=== PATIENT | male | born 1965 | race Caucasian/White ===

== ENCOUNTER 2025-05-15 13:38 | Observation (INO) | payer OTHER ==
[~2025-05-15] VITALS: Ht 167.6 cm; Wt 69.9 kg
[2025-05-15 14:12] LABS: IMMATURE GRANULOCYTE ABSOLUTE 0.04 K/uL (0-1); NUCLEATED RED BLOOD CELLS 0.0 % (0.0-0.19); PLATELET COUNT (AUTO) 291 K/uL (130-400); RED BLOOD CELL COUNT(AUTO) 4.35 MIL/uL (4.50-6.20); RED CELL DISTRIBUTION WIDTH 13.9 % (11.0-15.5); WHITE BLOOD COUNT (AUTO) 8.2 K/uL (4.8-10.8)
--- NOTE | 2025-05-15 14:18 | EKG ---
[facility] Test Date: 2025-05-15 Test Time: 14:15:36 Pat Name: BESSIE MARIE Department: ED Room: 406 Gender: M Beater Out Leveling Machine: [id number] : 1965 Requested By: YUDY HILL Order Number: [id number] Reading MD: Katherin Tovar Measurements Intervals Crane Rate: 63 P: 48 NC: 147 QRS: 61 QRSD: 91 T: 60 QT: 407 QTc: 415 Interpretive Statements Sinus rhythm No previous ECG available for comparison Electronically Signed On 05-17-2025 14:14:18 CDT by Katherin Tovar Please click the below link to view image of tracing.
[2025-05-15 14:31] LABS: CREATININE 0.6 mg/dL (0.5-1.3); GLOMERULAR FILTR. RATE CALC 111.0 mL/min (>90); GLUCOSE,RANDOM 117.0 mg/dL (70-105); SODIUM SERUM 133.0 mmol/L (136-145); UREA NITROGEN, BLOOD 11.0 mg/dL (7-18)
[2025-05-15 14:37] LABS: ASPARTATE AMINOTRANSFERASE 21.0 U/L (10-37); TOTAL PROTEIN, SERUM 6.8 g/dL (6.0-8.3)
--- NOTE | 2025-05-15 15:39 | HMCIMG ---
Indication: Seizure. Technique: Noncontrast axial CT of the head is obtained with coronal and sagittal reconstructions. Comparison: No pertinent prior similar studies have been submitted for comparison. Findings: Right frontotemporal craniotomy is noted. Encephalomalacia is noted in the right temporal lobe. No acute intracranial hemorrhage is noted. The ventricles are normal in size and configuration. Negron-white matter differentiation is maintained. No edema, mass effect or midline shift is seen. Midline structures and the posterior cranial fossa structures are unremarkable. No extra-axial fluid collection is noted. The orbits are unremarkable. Mild mucosal thickening is noted in the right maxillary sinus. The rest of the paranasal sinuses and the mastoid air cells are clear. 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 No acute intracranial abnormality. /[place]
--- NOTE | 2025-05-15 16:06 | ERN ---
ED Note History of Present Illness Stated Complaint: SEIZURE POA, SOB, NAUSEA, COLD SWEATS Chief Complaint: Seizure Time Seen by MD: 13:46 Dictation: 59-year-old male presenting to the ER for episode of seizure few hours ago while on a zoom call did not bump his head patient reported he had cold sweats and shortness a breath shortly after but all symptoms have resolved and he takes his medicines as prescribed history of traumatic brain injury years ago and then splint well controlled Allergies: Coded Allergies: No Known Allergies (Unverified Allergy, Unknown, 05/15/25) Past Medical History Past Medical History: Hypertension, Seizure Additional Past Medical Hx: TBI Surgical History: Tonsillectomy Surgical History Other: CRANIOTOMY Review of System Dictation Constitutional: Negative for fever,chills, and weight loss Eyes: Negative for injury, pain,redness, and discharge ENT: Negative for injury,pain or swelling Cardiovascular: Negative for chest pain, palpitations, and edema Respiratory: Per HPI Abdomen/GI: Negative for abdominal pain, nausea, vomiting, diarrhea, and constipation Back: Negative for injury and pain : Negative for injury, bleeding and discharge MS/Extremity: Negative for injury and deformity Skin: Negative for rash, and discoloration Neuro: Per HPI Initial Vital Sign VS Vital Signs Date Time Temp Pulse Resp B/P (MAP) Pulse Ox O2 Delivery O2 Flow Rate FiO2 05/15/25 13:41 98.1 60 16 145/83 100 Room Air* 0 21 Physical Exam Dictation General: awake, alert, NAD Head/Face: Normocephalic, atraumatic Eyes: PERRL, EOMI, vision at baseline ENT: oral cavity clear, TMs clear, no signs of infection Neck: Trachea midline, supple, no nuchal rigidity Cardiovascular: RRR, normal S1/S2, No MRGs, no JVD Respiratory: CTAB, no respiratory distress, No rales or wheezes Abdomen: Soft, non-tender, non-distended, normal bowel sounds, no guarding or rebound. Skin: Warm, dry, normal turgor, no rash MS/Extremity: Pulses equal, no cyanosis, neurovascular intact, FROM Neuro: COAx4, GCS 15, strength 5/5, CN 2-12 intact, normal cerebellar exam, normal gait, Psych: Normal behavior, mood, and affect normal Results (Laboratory/Radiology) Laboratory/Radiology Laboratory Tests Test 05/15/25 14:00 White Blood Count 8.2 K/uL (4.8-10.8) Red Blood Count 4.35 MIL/uL (4.50-6.20) L Hemoglobin 13.1 g/dL (14.0-18.0) L Hematocrit 39.9 % (42-54) L Mean Corpuscular Volume 91.7 fL (79-99) Mean Corpuscular Hemoglobin 30.1 pg (27.0-33.0) Mean Corpuscular Hemoglobin Concent 32.8 g/dL (32.0-36.0) Red Cell Distribution Width 13.9 % (11.0-15.5) Platelet Count 291 K/uL (130-400) Mean Platelet Volume 8.1 fL (7.5-10.5) Immature Granulocyte % (Auto) 0.5 % (0-1) Neutrophils (%) (Auto) 84.3 % (40.0-77.0) H Lymphocytes (%) (Auto) 8.2 % (21.0-51.0) L Monocytes (%) (Auto) 6.7 % (3.0-13.0) Eosinophils (%) (Auto) 0.1 % (0.0-8.0) Basophils (%) (Auto) 0.2 % (0.0-5.0) Neutrophils # (Auto) 6.9 K/uL (1.8-7.7) Lymphocytes # (Auto) 0.7 K/uL (1.0-4.8) L Monocytes # (Auto) 0.6 K/uL (0.1-1.0) Eosinophils # (Auto) 0.01 K/uL (0.00-0.70) Basophils # (Auto) 0.02 K/uL (0.00-0.20) Absolute Immature Granulocyte (auto 0.04 K/uL (0-1) Nucleated Red Blood Cells 0.0 % (0.0-0.19) White Cell Morphology Comment See comments Sodium Level 133 mmol/L (136-145) L Potassium Level 3.8 mmol/L (3.5-5.1) Chloride Level 95 mmol/L (101-111) L Carbon Dioxide Level 28 mmol/L (21-32) Blood Urea Nitrogen 11 mg/dL (7-18) Creatinine 0.6 mg/dL (0.5-1.3) Glomerular Filtration Rate Calc 111 mL/min (>90) Random Glucose 117 mg/dL (70-105) H Total Calcium 8.9 mg/dL (8.5-10.1) Total Bilirubin 0.6 mg/dL (0.2-1.0) Direct Bilirubin 0.1 mg/dL (0.0-0.3) Aspartate Amino Transf (AST/SGOT) 21 U/L (10-37) Alanine Aminotransferase (ALT/SGPT) 26 U/L (12-78) Alkaline Phosphatase 55 U/L (50-136) Troponin I High Sensitivity 4 ng/L (4-75) Total Protein 6.8 g/dL (6.0-8.3) Albumin 4.0 g/dL (3.5-5.0) Labs Reviewed?: Yes EKG Comment: Heart rate 68 normal sinus rhythm normal intervals no STEMI or STEMI equivalent ED Course ED Course Orders Procedure Category Date Status Time 12 Lead Ekg Tracing- EKG 05/15/25 Complete Technical 13:53 Basic Metabolic Panel LAB 05/15/25 Complete 13:53 Cbc With Differential LAB 05/15/25 Complete 13:53 Hepatic Function Panel LAB 05/15/25 Complete 13:53 Troponin I High LAB 05/15/25 Complete Sensitivity 13:53 Ct Head/Brain W/O CT 05/15/25 Resulted Contrast 13:53 Levetiracetam 500 PHA 05/15/25 Complete Mg/5 M[address] Sd V (Keppra 5 14:00 Current Medications Medications (Trade) Dose Ordered Sig/Evon Route PRN Reason Start Time Stop Time Status Last Admin Dose Admin Levetiracetam (kepPRA 500 MG/5 ML SD VIAL) 1,000 mg ONCE ONCE IV 05/15/25 14:00 05/15/25 14:01 DC 05/15/25 14:08 Vital Signs Date Time Temp Pulse Resp B/P (MAP) Pulse Ox O2 Delivery O2 Flow Rate FiO2 05/15/25 15:44 97.5 61 20 132/85 98 Room Air* 0 21 05/15/25 14:30 96.4 65 16 131/93 99 Room Air* 0 21 05/15/25 13:41 98.1 60 16 145/83 100 Room Air 0 05/15/25 13:41 98.1 60 16 145/83 100 Room Air* 0 21 Medical Decision Making MDM MDM: Differential diagnosis: Rationale: Tests considered and ordered secondary to shared decision making include: Previous outside records reviewed: Old ER visits. Risk of complication and/or morbidity or mortality of patient management: None Medications-Per medication reconciliation Need for hospitalization: Patient does not meet criteria for hospitalization. Need for emergency major/minor surgery: No There are no social concerns with this patient. Prescription drug management Prescriptions will include symptomatic care Patient's prior external medical records from other ER visits were reviewed by me as indicated. Prior testing and results from previous visits were reviewed. Prior tests were taken into account with medical decision making and resource utilization, independent historian/historians were used to obtain complete medical history. I independently interpreted the test that were performed, results were reviewed by me and considered findings on radiology if ordered. Medical management and examination interpretation discussions were had by me with other qualified healthcare professionals as indicated for the patient's care. \ Brief episode of seizure everything stable negative blood work and CT of the head patient at baseline stable for discharge. DX & DISP Disposition: Discharge Departure Impression: Primary Impression: Seizure Condition: Stable Referrals: SELF,REFERRAL (PCP) YUDY HILL MD May 15, 2025 16:06
[2025-05-15] MEDS ORDERED: PoTASSium chloRIDE 20MEQ ER 20 MEQ ERTAB PO PRN (16:30)
[2025-05-15] MEDS ORDERED: LACTULOSE 20 GM/30 ML UDCUP PO PRN (16:30)
[2025-05-15] MEDS ORDERED: PoTASSium chl 10% ELIXIR 20MEQ 20 MEQ/15 ML UDCUP PO PRN (16:30)
[2025-05-15] MEDS ORDERED: MAGNESIUM 2GM PREMIX 50ML 50 ML IV PRN (16:30)
--- NOTE | 2025-05-15 16:40 | NUR ---
SEIZUER ACTIVITY LASTED 5-10 SECONDS.VALIUM 5 MG ADMINISTERED IVP.
--- NOTE | 2025-05-15 17:13 | HP ---
[facility] PHYS[facility] Date of Service: May 15, 2025 Time of Service: 16:37 HISTORY OF PRESENT ILLNESS: [ ] admission date: 05/15/25 PCP self referral This is a 59-year-old male that presents in ER with chief complaints of having a episode of seizure activity. Onset this morning patient was in [employer] Tele conference when his encounters witnessed him having a seizure duration was about 30 seconds. Patient was given Valium the patient is in and out: will obtain data from significant other. Reports last seizure was 9 years ago: has a history of brain injury post craniotomy, the patient take antiepileptic medication: Lamotrigine 200 mg po bid. compliance with treatment. 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 Patient was given Keppra 1000 mg IV. We will bring in tele neuro patient had another episode in ED seizures that lasted about 30 seconds. The patient denies chest pain or shortness for breath. REVIEW OF SYSTEMS CONSTITUTIONAL: Denies fevers, chills, or night sweats. No unintentional weight loss reported. NEUROLOGICAL: Denies headache, amaurosis fugax, motor weakness, sensory deficit, vertigo/spinning sensation, gait abnormalities, or tremors. ENT: No hearing loss, otalgia, otorrhea, rhinitis, rhinorrhea, hoarseness, or sore throat. CARDIOVASCULAR: Denies any exertional angina, dyspnea on exertion, orthopnea, paroxysmal nocturnal dyspnea, palpitations, life-threatening arrhythmias, c laudication. PULMONARY: Denies any shortness of breath, cough, phlegm/sputum, hemoptysis, pleuritic chest pain. SLEEP: Denies morning headaches, daytime somnolence or napping. Denies difficulty falling asleep, staying asleep, waking from sleep. Denies knowledge of snoring. GASTROINTESTINAL: Denies any type of dysphagia to either liquids or solids. Denies nausea, vomiting, pyrosis, early satiety, abdominal pain, diarrhea, cons tipation, or changes in stool consistency or caliber. Denies coffee-ground emesis, hematemesis, hematochezia, or melanotic stools. GENITOURINARY: Denies frequency, urgency, nocturia, hematuria or incontinence (Storage/Irritative symptoms.) Low urinary stream, straining to void, urinary intermittency or hesitancy, splitting of the voiding stream, terminal dribbling. ENDOCRINOLOGIC: Denies polyuria, polydipsia, polyphagia or heat/cold intolerances. HEMATOLOGIC: Denies thrombophilia/previous clots, or coagulopathy/bleeding disorders. ONCOLOGIC: Denies personal history of malignancy. DERMATOLOGIC: Denies rashes or pruritus. PSYCHIATRIC: Denies any suicidal or homicidal ideation. Denies hallucinations. PAST MEDICAL HISTORY: [ ] Seizures, hypertension PAST SURGICAL HISTORY: [ ] Craniotomy PAST SOCIAL HISTORY: [ ] Drinks alcohol wine 2-4 glasses a day Patient vapes one cartridge when last some one-week Lives with spouse FAMILY HISTORY: [ ] Noncontributory Coded Allergies: No Known Allergies (Unverified Allergy, Unknown, 05/15/25) PHYSICAL EXAM GENERAL APPEARANCE: The patient is awake, alert, and oriented, in no acute cardiopulmonary distress. NEUROLOGICAL: Cranial nerves II-XII grossly intact. Motor is 5/5 in bilateral upper and lower extremities proximal to distal. No sensory deficits. HEENT: Face is symmetric. Pupils are equal and reactive. Extraocular movements are intact. NECK: Supple. No JVD. No thyromegaly. No submental, submandibular, pre- /postauricular, occipital or supraclavicular lymphadenopathy. CHEST: Normal chest expansion. No Telemetry. LUNGS: Absence of any rales, rhonchi or any wheezing. CARDIOVASCULAR: Regular. S1 and S2 normal. No appreciable rubs, murmurs or gallops. ABDOMEN: Soft, nontender, and nondistended. There is no rebound, voluntary guarding, or rigidity. : Deferred. No Dennis. EXTREMITIES: Non-edematous and not cyanotic. No clubbing. Good capillary refill. SKIN: No skin breakdown. Vital Sign (Last 24 Hours) 05/15/25 15:44 Temp 97.5 Pulse 61 Resp 20 B/P (MAP) 132/85 Pulse Ox 98 O2 Delivery Room Air* O2 Flow Rate 0 FiO2 21 LABS: Laboratory: Test 05/15/25 14:00 Range/Units White Blood Count 8.2 4.8-10.8 K/uL Red Blood Count 4.35 L 4.50-6.20 MIL/uL Hemoglobin 13.1 L 14.0-18.0 g/dL Hematocrit 39.9 L 42-54 % Mean Corpuscular Volume 91.7 79-99 fL Mean Corpuscular Hemoglobin 30.1 27.0-33.0 pg Mean Corpuscular Hemoglobin Concent 32.8 32.0-36.0 g/dL Red Cell Distribution Width 13.9 11.0-15.5 % Platelet Count 291 130-400 K/uL Mean Platelet Volume 8.1 7.5-10.5 fL Immature Granulocyte % (Auto) 0.5 0-1 % Neutrophils (%) (Auto) 84.3 H 40.0-77.0 % Lymphocytes (%) (Auto) 8.2 L 21.0-51.0 % Monocytes (%) (Auto) 6.7 3.0-13.0 % Eosinophils (%) (Auto) 0.1 0.0-8.0 % Basophils (%) (Auto) 0.2 0.0-5.0 % Neutrophils # (Auto) 6.9 1.8-7.7 K/uL Lymphocytes # (Auto) 0.7 L 1.0-4.8 K/uL Monocytes # (Auto) 0.6 0.1-1.0 K/uL Eosinophils # (Auto) 0.01 0.00-0.70 K/uL Basophils # (Auto) 0.02 0.00-0.20 K/uL Absolute Immature Granulocyte (auto 0.04 0-1 K/uL Nucleated Red Blood Cells 0.0 0.0-0.19 % White Cell Morphology Comment See comments Sodium Level 133 L 136-145 mmol/L Potassium Level 3.8 3.5-5.1 mmol/L Chloride Level 95 L 101-111 mmol/L Carbon Dioxide Level 28 21-32 mmol/L Blood Urea Nitrogen 11 7-18 mg/dL Creatinine 0.6 0.5-1.3 mg/dL Glomerular Filtration Rate Calc 111 >90 mL/min Random Glucose 117 H 70-105 mg/dL Total Calcium 8.9 8.5-10.1 mg/dL Total Bilirubin 0.6 0.2-1.0 mg/dL Direct Bilirubin 0.1 0.0-0.3 mg/dL Aspartate Amino Transf (AST/SGOT) 21 10-37 U/L Alanine Aminotransferase (ALT/SGPT) 26 12-78 U/L Alkaline Phosphatase 55 50-136 U/L Troponin I High Sensitivity 4 4-75 ng/L Total Protein 6.8 6.0-8.3 g/dL Albumin 4.0 3.5-5.0 g/dL Current Medications Medications (Trade) Dose Ordered Sig/Evon Route PRN Reason Start Time Stop Time Status Last Admin Dose Admin Acetaminophen (TYLenol 325MG TAB) 650 mg Q4H PRN PO TEMPERATURE GREATER THAN 101.5 05/15/25 16:30 06/14/25 16:29 UNV Diazepam (VALium 5 MG/ML 2 ML SYG) 5 mg ONCE STAT IVP 05/15/25 16:13 05/15/25 16:14 DC 05/15/25 16:19 5 MG Famotidine (Pepcid 20mg Tab) 20 mg DAILY PO 05/16/25 09:00 06/15/25 08:59 UNV Hydralazine HCl (APRESOLine 20MG INJ) 5 mg Q4H PRN IV ADMINISTER FOR SBP > 160 05/15/25 16:30 06/14/25 16:29 UNV Lactulose (Constulose 20gm/ 30ml Udcup) 20 gm BID PRN PO CONSTIPATION 05/15/25 16:30 06/14/25 16:29 UNV Lorazepam (AtiVAN) 1 mg Q4H PRN IVP SEIZURES 05/15/25 16:30 05/22/25 16:29 UNV Magnesium Sulfate 50 ml @ 0 mls/hr PROTOCOL PRN IV low mag level 05/15/25 16:30 06/14/25 16:29 UNV Potassium Chloride 100 ml @ 100 mls/hr AD PRN IV POTASSIUM PROTOCOL 05/15/25 16:30 06/14/25 16:29 UNV Potassium Chloride (K-Dur/Klor-Con 20meq) 20 meq AD PRN PO POTASSIUM PROTOCOL 05/15/25 16:30 06/14/25 16:29 UNV Potassium Chloride (KCl 10% Elixir 20meq/15ml) 20 meq AD PRN PO POTASSIUM PROTOCOL 05/15/25 16:30 06/14/25 16:29 UNV DIAGNOSTICS / RADIOLOGY: [ ] ASSESSMENT: Seizures Multiple POA Epilepsy disorder POA Chronic problems: Essential Hypertension history Brain injury with CRANIOTOMY Allergies: No Known Allergies PLAN: [ ] Admit: Medical-surgical condition: Guarded Status: Full code IVF: [facility] tele neuro Seizure precautions Ativan1 mg IV as needed for seizure activity We will resume lamotrigine we will defer to tele neuro MD Labs cbc, cmp, mag+ Replace electrolytes as needed as per protocol to keep potassium above 4.0 magnesium 2.0. Home medications pending to be reviewed by RN nurse. PRN: MEDICATIONS Tylenol 650 mg po every 4 hrs for fever zofran 4 mg IV every 6 hrs for n/v Hydralazine 5 mg IV every 4 hrs systolic pressure > 160 bowel regiment: lactulose 20 gm PO BID PRN constipation Supportive measures: DVT ppx, GI ppx all questions answered time spent: > 35 min Supervising MD: c/d This document was generated in part using voice recognition software, occasional wrong word or sound alike substitutions may have occurred due to the inherent limitations of voice recognition software. Read the chart carefully and recognize using context, where the substitutions have occurred. Although every effort was made to edit the content, energy analyst and typing errors may occur ADVANCED CARE PLANNING 1. Which of the following were discussed? Hospice Care - Yes / No Therapeutic options - Yes / No Advance Directives - Yes / No Other discussions - 2. Discussed with who? 3. Voluntary nature of this service was explained to the patient? Yes / No 4. Amount of time spent - 5. Reviewed by Physician? (if this service was performed by NPP) Yes / No ATTESTATION BY PHYSICIAN I have seen and examined the patient. I reviewed the documentation, medical decision making, and treatment plan as noted by the mid-level provider above. I agree with the findings and plan of care. Bhumika Mabry MD, ELIZABETH NP May 15, 2025 17:13
--- NOTE | 2025-05-15 18:36 | NUR ---
TELE NEURO CONSULT DONE
--- NOTE | 2025-05-15 18:39 | CONS ---
CONSULT NOTE: [facility] Note # Demographics Consult Type: General Neurology Patient Location: Emergency Room First Name: BESSIE Bustillos Last Name: FRANK Date of : 1965 Age: 59 Gender: Male Facility: [facility] Time of Initial Page (Central Time): 05/15/2025 18:14 Time of Return Call (Central Time): 05/15/2025 18:14 # HPI History: TBI 9 years ago. resulted in seizures. On lamictal 200 mg bid. no seizures for 8 years. Today morning had a seizure. Had second brief sz this afternoon in ED. no bladder or bowl incontinence. received keppra and valium in ED. pt report compliance with Lamictal. no recent infection. per pt, he has tried multiple AEDs in past. keppra caused "rage". dilantin made him "feel drunk", and aptiom causes nausea and weight loss. Never tried vimpat. # Exam Time of Exam (Central Time): 05/15/2025 18:30 Mental Status: - awake - follows commands - alert and oriented x 3 Language: - no aphasia - no dysarthria Cranial Nerves: - extra ocular movements intact - normal visual smith - no facial droop Motor: - no drift Cerebellar: - normal cerebellar exam # PMH-FH-SH Past Medical History: - seizure - hypertension TBI # Data Glucose: within normal limits Other Labs: sodium [address] personally read by me (Central Time): 05/15/2025 18:[address]: - no bleed - per radiologist read right temporal encephalomalacia and postsurgical changes # Assessment Impression: - Seizure # Plan Labs: - B12 - TSH - urine drug screen - ua metabolic infectious w/u Other: - If patient has any neurological deterioration please call me back immediately - I have discussed my recommendations with the referring provider - seizure precautions - neurology referral as outpatient Additional Recommendations: continue lamictal 200 mg bid add vimpat 100 mg PO or IV bid. pt has reportedly side effects with keppra, aptiom and dilantin in the past. recommend avoiding those. no driving until cleared by local neuro. avoid meds which can lower sz threshold. prn ativan/versed/valium for breakthrough sz. if continue to have more seizures- recommend MRi brain w/wo and EEG # Logistics Attestation of consult completion: The patient is located at: [facility]. Facility staff participated in the visit. I performed this telemedicine visit from my offsite office utilizing interactive 2 way audio and visual telecommunication technology. Total time spent in telemedicine encounter: I spent 15 minutes reviewing clinical data and/or imaging, obtaining history, examining the patient, communicating with the onsite care team, and in preparation of this report. # Demographics First Name: BESSIE Bustillos Last Name: FRANK Facility: [facility] CLARE REED MD May 15, 2025 18:39
[2025-05-15] MEDS ORDERED: VALS1TAB76 PO (19:16)
[2025-05-15] MEDS ORDERED: ERGO500093 PO (19:16)
[2025-05-15] MEDS ORDERED: LAMO200T10 PO (19:16)
--- NOTE | 2025-05-15 19:16 | NUR ---
MEDICATIONS RECONCILED
[2025-05-15 19:30] VITALS: O2SAT 99
[2025-05-15 20:00] VITALS: BP 118/74; PULSE 60; RESP 20; TEMP 97.6
[2025-05-16] VITALS: BP 127/80; PULSE 60; RESP 20; TEMP 97.8
[2025-05-16 04:00] VITALS: BP 122/84; PULSE 70; RESP 20; TEMP 97.7
[2025-05-16 08:00] VITALS: O2SAT 99
[2025-05-16 08:13] VITALS: BP 108/74; PULSE 68; RESP 18; TEMP 98.1
[2025-05-16] MEDS: FAMOTIDINE 20MG TAB PO SCH (08:36)
--- NOTE | 2025-05-16 11:01 | NUR ---
INFORMED PRIMARY OFE,PRIMARY CLINICIAN DURING ROUNDS OF TELE NEURO RECOMMENDATIONS ,PER PRIMARY ALREADY READ THE RECOMMENDATIONS AND WILL DC PATIENT HOME TO FOLLOW UP WITH HIS NEUROLOGIST
[2025-05-16 11:15] VITALS: BP 118/76; PULSE 60; RESP 18; TEMP 97.7
[2025-05-16] MEDS ORDERED: LACO100T2 PO ×2 (11:47→11:51)
--- NOTE | 2025-05-16 11:48 | NUR ---
DCP: HOME Pt currently lives with his Edith [phone]. Pt does not have any DME, home health, or provider services. Pt is able to complete ADLs independently. Pt works for a [employer] company and works from home on . As per pt he travels to different metro areas in [place] . Pt sees a MARKETING FINANCE SPECIALIST on [address] does not recall the name. Pt states that he is looking for providers in the [place] area since he goes there at least once a week for work. At [place] pt will go home and sps will assist with transportation. Addendum: 05/16/25 at 1151 by ANDRE BARROS SS Amended: Links added.
--- NOTE | 2025-05-16 12:00 | DS ---
Discharge Summary Hospital Course Summary: admission date: 05/15/25 PCP self referral This is a 59-year-old male that presents in ER with chief complaints of having a episode of seizure activity. Onset this morning patient was in [facility] Tele conference when his encounters witnessed him having a seizure duration was about 30 seconds. Patient was given Valium the patient is in and out: will obtain data from significant other. Reports last seizure was 9 years ago: has a history of brain injury post craniotomy, the patient take antiepileptic medication: Lamotrigine 200 mg po bid. compliance with treatment. 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 Patient was given Keppra 1000 mg IV. We will bring in tele neuro patient had another episode in ED seizures that lasted about 30 seconds. The patient denies chest pain or shortness for breath. 05/16/25 patient was seen patient reports no events of seizures overnight. Patient was evaluated by [facility] neuro started patient on Vimpat 100 mg p.o. b.i.d.. Patient has a primary Neurology in [facility] be following him for nine years he will give him a call once he is discharged from [facility]. Patient reports no signs and symptoms of UTI. Patient reports he travels a lot and has been very busy not getting enough sleep prior to episode of seizures yesterday. Patient is fully awake alert oriented x3. all questions were addressed he will be discharged hemodynamically stable. Procedure(s): REASON: sz ORDERING PHYSICIAN: YUDY HILL MD PROCEDURE: HEAD WO - CT HEAD/BRAIN W/O CONTRAST Indication: Seizure. Technique: Noncontrast axial CT of the head is obtained with coronal and sagittal reconstructions. Comparison: No pertinent prior similar studies have been submitted for comparison. Findings: Right frontotemporal craniotomy is noted. Encephalomalacia is noted in the right temporal lobe. No acute intracranial hemorrhage is noted. The ventricles are normal in size and configuration. Negron-white matter differentiation is maintained. No edema, mass effect or midline shift is seen. Midline structures and the posterior cranial fossa structures are unremarkable. No extra-axial fluid collection is noted. The orbits are unremarkable. Mild mucosal thickening is noted in the right maxillary sinus. The rest of the paranasal sinuses and the mastoid air cells are clear. 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 No acute intracranial abnormality. /[place] Assessment/Plan: discharged dx's Seizures Multiple POA Epilepsy disorder POA Chronic problems: Essential Hypertension history Brain injury with CRANIOTOMY Allergies: No Known Allergies PLAN: \ADMISSION DATE: 05/15/25 DISCHARGE DATE: 05/16/25 DISPOSITION: home CONDITION: stable RENTAL [employer] PORTER(S): [facility] neuro: FOLLOW UP APPOINTMENT(S): PCP: 2-3 days, primary neurologist in [facility]: patient will call him: with updates.and new medications PROCEDURES: none IMAGING (S) report attached to summary : CT head, MICROBIOLOGY: report attached to summary; none ACTIVITY: ab jennifer HOME MEDICATIONS remain the same see below CHANGES ON HOME MEDICATIONS none NEW MEDICATIONS Vimpat 100 mg po bid TEACHING: side effects and adverse reaction of medications. advice to get plenty of rest to avoid sleep deprivation . Emergency instructions: The patient was instructed to present to the nearest Emergency Department or call 911 should their symptoms return or worsen. Home Medications: Active Scripts Lacosamide (Vimpat) 100 Mg Tab, 1 TAB PO BID for 30 Days, #60 TAB 0 Refills Prov:ALEJANDRA FAIR NP 05/16/25 Reported Medications Valsartan/Hydrochlorothiazide (Valsartan-Hctz 160-12.5 mg Tab) 160 Mg-12.5 Mg Tablet, 1 TAB PO DAILY for 30 Days, #30 TAB 0 Refills 05/15/25 Ergocalciferol (Vitamin D2) (Vitamin D2) 1,250 Mcg ([id number] Unit) Capsule, 1 CAP PO QWEEK for 28 Days, #4 CAP 0 Refills 05/15/25 Lamotrigine (Lamotrigine) 200 Mg Tablet, 1 TAB PO BID for 30 Days, #60 TAB 0 Refills 05/15/25 New Medications: Lacosamide (Vimpat) 100 Mg Tab 1 TAB PO BID for 30 Days, #60 TAB 0 Refills Continued Medications: Ergocalciferol (Vitamin D2) (Vitamin D2) 1,250 Mcg ([id number] Unit) Capsule 1 CAP PO QWEEK for 28 Days, #4 CAP 0 Refills Lamotrigine (Lamotrigine) 200 Mg Tablet 1 TAB PO BID for 30 Days, #60 TAB 0 Refills Valsartan/Hydrochlorothiazide (Valsartan-Hctz 160-12.5 mg Tab) 160 Mg-12.5 Mg Tablet 1 TAB PO DAILY for 30 Days, #30 TAB 0 Refills Time spent arranging discharge: 31-60 minutes ATTESTATION BY PHYSICIAN I have seen and examined the patient. I reviewed the documentation, medical decision making, and treatment plan as noted by the mid-level provider above. I agree with the findings and plan of care. Bhumika Mabry MD, ELIZABETH NP May 16, 2025 12:00
[2025-05-16 14:49] LABS: APPEARANCE,URINE CLEAR (CLEAR); GLUCOSE, URINE (UA) TRACE mg/dL (NEGATIVE); LEUKOCYTE ESTERASE ,URINE NEGATIVE Leu/uL (NEGATIVE); NITRATE,URINE NEGATIVE (NEGATIVE); OCCULT BLOOD,URINE NEGATIVE (NEGATIVE)
[2025-05-16 14:53] LABS: ADD UA MICROSCOPIC YES
== END 2025-05-16 15:45 | disposition home or self-care (01) ==
LOC: EDH 13:38 → EDHIP 16:24 → INTOOBSV 16:24 → EEVIPCON 16:24 → 4BH 19:00
PROVIDERS: ADMIT Hospitalist; ATTEND Hospitalist
DX: G40.909 Epilepsy, unspecified, not intractable, without status epilepticus (principal); I10 Essential (primary) hypertension; F17.290 Nicotine dependence, other tobacco product, uncomplicated; Z87.820 Personal history of traumatic brain injury; Z79.899 Other long term (current) drug therapy
CPT/HCPCS: 99285; 96365; 70450; 96375; 80076; 84484; 80048; 85025; 36415 ×2; 93005; 84443; 82607; 81001; J1953; J3360; G0378; 96374